=== PATIENT | female | born 1970 | race Two or more races ===

== ENCOUNTER 2021-05-05 06:18 | Day surgery (SDC) | payer OTHER ==
[~2021-05-05 06:18] MED LIST: BUSPAR PO; CLONAZEPAM0.5 MG PO; TOPROL XL25 M1 PO; TRINTELLIX10 MG PO
[2021-05-05] MEDS ORDERED: IBU800 MG PO (08:19)
== END 2021-05-05 12:10 | disposition home or self-care (01) ==
LOC: CIR.AMB 06:18
PROVIDERS: ATTEND Obstetrics & Gynecology Gynecology
DX: N72 Inflammatory disease of cervix uteri (principal); Z20.822 Contact with and (suspected) exposure to COVID-19